=== PATIENT | female | born 1995 ===

== ENCOUNTER → 2017-05-05 | Outpatient (CLI) | payer MEDICAID ==
[2017-05-05 16:16] LABS: BASOPHIL # 0.1 K/uL (0.0-0.2); BASOPHIL % 0.7 %; EOSINOPHIL # 0.1 K/uL (0.0-0.5); EOSINOPHIL % 1.5 %; HEMOGLOBIN 12.3 g/dL (11.0-15.0); IMMATURE GRANULOCYTE % 0.1 %; LYMPHOCYTE # 2.7 K/uL (0.8-4.0); LYMPHOCYTE % 31.5 %; MCH 27.6 pg (27.0-34.0); MCHC 32.4 gm/dL (32.0-36.5); MCV 85.4 fl (83.0-98.0); MONOCYTE # 0.6 K/uL (0.0-1.0); MONOCYTE % 7.5 %; MPV 11.8 fl (9.4-12.4); NEUTROPHIL % 58.7 %; NRBC % 0 /100WBC (0-0.00); PLATELET COUNT 358 K/uL (150-450); RBC 4.45 M/uL (3.50-5.00); RDW-CV 13.8 % (11.9-14.6); WBC 8.5 K/uL (4.0-11.0)
[2017-05-05 17:09] LABS: BARBITURATE NEGATIVE (NEGATIVE); COCAINE NEGATIVE (NEGATIVE); OPIATES NEGATIVE (NEGATIVE)
[2017-05-05 17:10] LABS: AMPHETAMINE NEGATIVE (NEGATIVE)
== END ==
LOC: LKCL 16:04
PROVIDERS: Family Medicine
DX: Z34.82 Encounter for supervision of other normal pregnancy, second trimester (principal)